=== PATIENT | male | born 1955 | race Caucasian/White ===

== ENCOUNTER 2019-03-10 02:46 | Inpatient (IN) | payer MEDICARE ==
[~2019-03-10] VITALS: Ht 167.6 cm; Wt 51.5 kg
[2019-03-10] MEDS: fentaNYL PF VIAL 100 MCG/2 ML VIAL IV PRN ×2 (03:41→05:08)
[2019-03-10 03:44] LABS: BASO % 1 % (0-3); EOS % 0 % (0-3); HEMATOCRIT 36.6 % (39.0-53.0); HEMOGLOBIN 12.8 g/dL (13.0-17.5); LYMPH # 1.1 x10^3/uL (1.0-4.8); LYMPH % 18 % (24-48); MEAN CORPUSCULAR HEMOGLOBIN 37 pg (25-35); MEAN CORPUSCULAR HGB CONC 35 g/dL (31-37); MEAN CORPUSCULAR VOLUME 105 fL (79-100); MONO # 0.3 x10^3/uL (0.0-1.1); MONO % 6 % (0-9); NEUT # 4.4 x10^3/uL (1.8-7.7); NEUT % 75 % (31-73); PLATELET COUNT 129 x10^3/uL (140-400); RED BLOOD COUNT 3.48 x10^6/uL (4.30-5.70); RED CELL DISTRIBUTION WIDTH 14.1 % (11.5-14.5); WHITE BLOOD COUNT 5.9 x10^3/uL (4.0-11.0)
[2019-03-10 03:52] LABS: CALCIUM 8.9 mg/dL (8.5-10.1); CREATININE 0.6 mg/dL (0.7-1.3); GFR 136.5; POTASSIUM 3.8 mmol/L (3.5-5.1)
[2019-03-10 03:58] LABS: ALBUMIN/GLOBULIN RATIO 1.1 (1.0-1.7); TOTAL BILIRUBIN 0.5 mg/dL (0.2-1.0); TOTAL PROTEIN 7.7 g/dL (6.4-8.2)
[2019-03-10] MEDS ORDERED: IV NORMAL SALINE 1000ML BAG 1,000 ML IV SCH (04:00)
[2019-03-10] MEDS ORDERED: ONDANSETRON PF 4 MG/2 ML VIAL. IV ONE (04:00)
--- NOTE | 2019-03-10 04:02 | PHYS DOC ---
Past Medical History Past Medical History: Other Additional Past Medical Histor: HERNIA Past Surgical History: Other Additional Past Surgical Histo: LEFT ANKLE SX Alcohol Use: Heavy Drug Use: None Adult General Chief Complaint Chief Complaint: GROIN PAIN HPI HPI Patient is a 63 year old male who presents with complaint of severe right groin pain. The patient states his symptoms started earlier this morning and have been constant since onset. States that he has had history of a right inguinal hernia. Has had occasional swelling of this hernia off and on over the past year but states that typically after laying flat the hernia will usually reduce back. He states that today the hernia did not reduce back and has had worsening swelling and pain to this area. Has had associated vomiting. Denies fever or loose stools. States that the hernia is very tender to touch at this time and he is unable to reduce it, thus he came to the emergency department for further treatment. Review of Systems Review of Systems Constitutional: Denies fever or chills [] Eyes: Denies change in visual acuity, redness, or eye pain [] HENT: Denies nasal congestion or sore throat [] Respiratory: Denies cough or shortness of breath [] Cardiovascular: Denies chest pain or edema[] GI: Nausea, vomiting, abdominal pain, denies bloody stools or diarrhea [] : Right-sided groin pain and swelling[] Musculoskeletal: Denies back pain or joint pain [] Integument: Denies rash or skin lesions [] Neurologic: Denies headache, focal weakness or sensory changes [] All other systems were reviewed and found to be within normal limits, except as documented in this note. Current Medications Current Medications Current Medications Medications (Trade) Dose Ordered Sig/Terry Start Time Stop Time Status Last Admin Dose Admin Fentanyl Citrate (Fentanyl 2ml Vial) 50 mcg PRN Q15MIN PRN 03/10/19 03:30 03/11/19 03:29 03/10/19 05:08 50 MCG Info (CONTRAST GIVEN -- Rx MONITORING) 1 each PRN DAILY PRN 03/10/19 04:30 03/12/19 04:29 Iohexol (Omnipaque 300 Mg/ml) 100 ml STK-MED ONCE 03/10/19 04:26 03/10/19 04:26 DC Ondansetron HCl (Zofran) 4 mg 1X ONCE 03/10/19 04:00 03/10/19 04:01 DC 03/10/19 03:44 4 MG Sodium Chloride 1,000 ml @ 1,000 mls/hr Q1H 03/10/19 04:00 03/10/19 04:59 DC 03/10/19 03:40 1,000 MLS/HR Allergies Allergies Allergies Coded Allergies Type Severity Reaction Last Updated Verified No Known Drug Allergies 03/10/19 No Physical Exam Physical Exam Constitutional: Alert, afebrile, appears in moderate discomfort. [] HENT: Normocephalic, atraumatic, bilateral external ears normal, oropharynx moist, no oral exudates, nose normal. [] Eyes: PERRLA, EOMI, conjunctiva normal, no discharge. [] Neck: Normal range of motion, no tenderness, supple, no stridor. [] Cardiovascular:Heart rate regular rhythm, no murmur [] Lungs & Thorax: Bilateral breath sounds clear to auscultation [] Abdomen: Bowel sounds normal, soft, no tenderness, no masses, no pulsatile masses. : Moderate to severe swollen tender mass to the right inguinal canal extending to right hemiscrotum, mass is irreducible through the right inguinal canal[] Skin: Warm, dry, no erythema, no rash. [] Back: No tenderness, no CVA tenderness. [] Extremities: No tenderness, no cyanosis, no clubbing, ROM intact, no edema. [] Neurologic: Alert and oriented X 3, normal motor function, normal sensory function, no focal deficits noted. [] Current Patient Data Vital Signs Vital Signs Date Time Temp Pulse Resp B/P (MAP) Pulse Ox O2 Delivery O2 Flow Rate FiO2 03/10/19 05:08 20 95 Room Air 03/10/19 04:02 64 174/99 (124) 03/10/19 02:48 98.2 98.2 Lab Values Laboratory Tests Test 03/10/19 03:10 03/10/19 05:03 White Blood Count 5.9 x10^3/uL (4.0-11.0) Red Blood Count 3.48 x10^6/uL (4.30-5.70) L Hemoglobin 12.8 g/dL (13.0-17.5) L Hematocrit 36.6 % (39.0-53.0) L Mean Corpuscular Volume 105 fL (79-100) H Mean Corpuscular Hemoglobin 37 pg (25-35) H Mean Corpuscular Hemoglobin Concent 35 g/dL (31-37) Red Cell Distribution Width 14.1 % (11.5-14.5) Platelet Count 129 x10^3/uL (140-400) L Neutrophils (%) (Auto) 75 % (31-73) H Lymphocytes (%) (Auto) 18 % (24-48) L Monocytes (%) (Auto) 6 % (0-9) Eosinophils (%) (Auto) 0 % (0-3) Basophils (%) (Auto) 1 % (0-3) Neutrophils # (Auto) 4.4 x10^3/uL (1.8-7.7) Lymphocytes # (Auto) 1.1 x10^3/uL (1.0-4.8) Monocytes # (Auto) 0.3 x10^3/uL (0.0-1.1) Eosinophils # (Auto) 0.0 x10^3/uL (0.0-0.7) Basophils # (Auto) 0.0 x10^3/uL (0.0-0.2) Sodium Level 129 mmol/L (136-145) L Potassium Level 3.8 mmol/L (3.5-5.1) Chloride Level 92 mmol/L (98-107) L Carbon Dioxide Level 23 mmol/L (21-32) Anion Gap 14 (6-14) Blood Urea Nitrogen 4 mg/dL (8-26) L Creatinine 0.6 mg/dL (0.7-1.3) L Estimated GFR (Cockcroft-Gault) 136.5 BUN/Creatinine Ratio 7 (6-20) Glucose Level 103 mg/dL (70-99) H Lactic Acid Level 2.3 mmol/L (0.4-2.0) H Calcium Level 8.9 mg/dL (8.5-10.1) Total Bilirubin 0.5 mg/dL (0.2-1.0) Aspartate Amino Transferase (AST) 45 U/L (15-37) H Alanine Aminotransferase (ALT) 41 U/L (16-63) Alkaline Phosphatase 58 U/L (46-116) Total Protein 7.7 g/dL (6.4-8.2) Albumin 4.0 g/dL (3.4-5.0) Albumin/Globulin Ratio 1.1 (1.0-1.7) Urine Collection Type Unknown Urine Color Yellow Urine Clarity Clear Urine pH 7.0 Urine Specific [place] 1.020 Urine Protein Negative mg/dL (NEG-TRACE) Urine Glucose (UA) Negative mg/dL (NEG) Urine Ketones (Stick) 15 mg/dL (NEG) Urine Blood Negative (NEG) Urine Nitrite Negative (NEG) Urine Bilirubin Negative (NEG) Urine Urobilinogen Dipstick 0.2 mg/dL (0.2 mg/dL) Urine Leukocyte Esterase Negative (NEG) Urine RBC 0 /HPF (0-2) Urine WBC 0 /HPF (0-4) Urine Squamous Epithelial Cells Few /LPF Urine Bacteria 0 /HPF (0-FEW) Laboratory Tests 03/10/19 03:10 Laboratory Tests 03/10/19 03:10 EKG EKG Not performed[] Radiology/Procedures Radiology/Procedures [facility] [address] [place], [place] [id number] IMAGING REPORT Signed PATIENT: ROC MCKEON ACCOUNT: [id number] : 1955 LOCATION: ER AGE: 63 SEX: M EXAM STATUS: REG ER ORD. PHYSICIAN: CALVIN CASPER MD REASON: right inguinal hernia, vomiting, eval for possible strangulated hernia PROCEDURE: CT ABD PELV W/ IV CONTRST ONLY CT abdomen and pelvis with contrast: Reason for examination: Right inguinal hernia with vomiting. Evaluate for possible strangulated hernia. Helical images were obtained through the abdomen and pelvis with intravenous administration of 75 cc Omnipaque 300. Reconstruction was performed in sagittal and coronal planes. Exposure: One or more of the following individualized dose reduction techniques were utilized for this examination: 1. Automated exposure control 2. Adjustment of the mA and/or kV according to patient size 3. Use of iterative reconstruction technique. The lung moncada are clear. Heart size is normal with no pericardial effusion. There is a small hiatal hernia. No focal abnormality seen at the liver, spleen, adrenal glands, gallbladder or pancreas. The abdominal aorta and inferior vena cava show no acute abnormalities but there is arteriosclerotic vascular calcification. The kidneys show no renal masses, renal calculi, hydronephrosis or evidence of obstructive uropathy. The stomach is distended with fluid. No abnormality seen at the duodenum. The small intestinal tract shows some mild dilatation down to the right inguinal hernia which appears to extend down into the scrotum with hydrocele surrounding the herniated small bowel.The opening of the right inguinal hernia is approximately 4 cm diameter. The small intestine extending into the hernia shows some compression as it enters and exits the hernia with some mild dilatation of the loop of small bowel within the hernia. The colon is not distended and there is no evidence of diverticulosis or diverticulitis. The bladder is distended and shows no wall thickening. Prostate gland contains calcification. Seminal vesicles are unremarkable. No free fluid is seen in the abdomen or pelvis. IMPRESSION: Right inguinal hernia with a loop of bowel extending into the right hemiscrotum and there is a hydrocele present. The opening of the hernia is approximately 4 cm diameter and does compress the small intestine entering and exiting the hernia and there is mild dilatation of the loop of bowel within the hernia. Fluid-filled stomach and mild dilatation of the small bowel proximal to the hernia consistent with some bowel obstruction related to the hernia. Small hiatal hernia. Electronically signed by: Alejandro Chaves MD (03/10/2019 5:14 AM) [facility] DICTATED and SIGNED BY: ALEJANDRO CHAVES MD DATE: 03/10/19 0514 [] Course & Med Decision Making Course & Med Decision Making Pertinent Labs and Imaging studies reviewed. (See chart for details) Patient started on IV fluids and given IV fentanyl and Zofran for initial treatment. The patient's lactic acid level was found to be 2.3. Given exam and findings, I'm concerned patient may have a strangulated right inguinal hernia. CT imaging confirms presence of small bowel in the right inguinal canal and scrotum with proximal changes concerning for possible small bowel obstruction. I contacted Dr. Durán of general surgery who has agreed to come see patient in hospital. Patient admitted to Dr. Mitchell. Siobhan Disclaimer Siobhan Disclaimer This electronic medical record was generated, in whole or in part, using a voice recognition dictation system. Departure Departure Impression: Primary Impression: Strangulated inguinal hernia Disposition: ADMITTED INPATIENT Admitting Physician: Leanne Mitchell Condition: GUARDED Referrals: LEANNE MITCHELL MD (PCP) CALVIN CASPER MD Mar 10, 2019 04:02
[2019-03-10] MEDS ORDERED: IOHEXOL 300 MG/ML 100ML VIAL. ONE (04:26)
[2019-03-10] MEDS ORDERED: CONTRAST GIVEN. MC PRN (04:30)
[2019-03-10] MEDS ORDERED: IOHEXOL 300 MG/ML 100ML VIAL. IV ONE (05:00)
--- NOTE | 2019-03-10 05:17 | RAD ---
CT abdomen and pelvis with contrast: Reason for examination: Right inguinal hernia with vomiting. Evaluate for possible strangulated hernia. Helical images were obtained through the abdomen and pelvis with intravenous administration of 75 cc Omnipaque 300. Reconstruction was performed in sagittal and coronal planes. Exposure: One or more of the following individualized dose reduction techniques were utilized for this examination: 1. Automated exposure control 2. Adjustment of the mA and/or kV according to patient size 3. Use of iterative reconstruction technique. The lung moncada are clear. Heart size is normal with no pericardial effusion. There is a small hiatal hernia. No focal abnormality seen at the liver, spleen, adrenal glands, gallbladder or pancreas. The abdominal aorta and inferior vena cava show no acute abnormalities but there is arteriosclerotic vascular calcification. The kidneys show no renal masses, renal calculi, hydronephrosis or evidence of obstructive uropathy. The stomach is distended with fluid. No abnormality seen at the duodenum. The small intestinal tract shows some mild dilatation down to the right inguinal hernia which appears to extend down into the scrotum with hydrocele surrounding the herniated small bowel.The opening of the right inguinal hernia is approximately 4 cm diameter. The small intestine extending into the hernia shows some compression as it enters and exits the hernia with some mild dilatation of the loop of small bowel within the hernia. The colon is not distended and there is no evidence of diverticulosis or diverticulitis. The bladder is distended and shows no wall thickening. Prostate gland contains calcification. Seminal vesicles are unremarkable. No free fluid is seen in the abdomen or pelvis. IMPRESSION: Right inguinal hernia with a loop of bowel extending into the right hemiscrotum and there is a hydrocele present. The opening of the hernia is approximately 4 cm diameter and does compress the small intestine entering and exiting the hernia and there is mild dilatation of the loop of bowel within the hernia. Fluid-filled stomach and mild dilatation of the small bowel proximal to the hernia consistent with some bowel obstruction related to the hernia. Small hiatal hernia. Electronically signed by: Janey Roblero MD (03/10/2019 5:14 AM) [facility]
[2019-03-10 05:23] LABS: BILIRUBIN,URINE NEGATIVE (NEG); CLARITY,URINE CLEAR; COLOR,URINE YELLOW; NITRITE,URINE NEGATIVE (NEG); PROTEIN,URINE NEGATIVE (NEG-TRACE); UROBILINOGEN,URINE 0.2 mg/dL (0.2 mg/dL)
[2019-03-10 05:34] LABS: BACTERIA,URINE 0 /HPF (0-FEW); RBC,URINE 0 /HPF (0-2); SQUAMOUS EPITHELIAL CELL,UR FEW /LPF; WBC,URINE 0 /HPF (0-4)
[2019-03-10 05:40] VITALS: BP 156/84
[2019-03-10] MEDS: IV NORMAL SALINE 1000ML BAG 1,000 ML IV SCH ×4 (06:00→22:00)
[2019-03-10] MEDS ORDERED: fentaNYL PF VIAL 100 MCG/2 ML VIAL IV PRN ×3 (06:00→08:45)
[2019-03-10] MEDS ORDERED: ONDANSETRON PF 4 MG/2 ML VIAL. IV PRN ×3 (06:00→13:00)
[2019-03-10] MEDS ORDERED: fentaNYL PF VIAL 100 MCG/2 ML VIAL ONE ×2 (06:24→06:39)
--- NOTE | 2019-03-10 06:33 | NUR ---
pt received fro ED at 0545 , PACU called and taking pt for surgery, left the unit at 0605.
[2019-03-10] MEDS ORDERED: PROPOFOL 20 ML IV ONE (06:35)
[2019-03-10] MEDS ORDERED: ONDANSETRON PF 4 MG/2 ML VIAL. ONE ×2 (06:35→07:18)
[2019-03-10] MEDS ORDERED: LIDOCAINE 2% PF 5 ML VIAL. ONE (06:35)
[2019-03-10] MEDS ORDERED: DEXAMETHASONE SOD PHOS 4 MG/ML VIAL ONE ×3 (06:35→07:18)
[2019-03-10] MEDS ORDERED: ROCURONIUM 50 MG/5 ML VIAL. ONE (06:37)
[2019-03-10] MEDS ORDERED: SUCCINYLCHOLINE 200 MG/10 ML VIAL. ONE (06:38)
[2019-03-10] MEDS ORDERED: BUPIVACAINE-EPI 0.5%-1:200000 MPF 30 ML VIAL. INJ ONE ×2 (07:00→07:52)
--- NOTE | 2019-03-10 07:05 | PDOC2 ---
CONSULT Date of Consult Date of Consult DATE: 03/10/19 TIME: 07:00 Reason for Consult Reason for Consult: Incarcerated right inguinal hernia Referring Physician Referring Physician: Dr. Sarabia Identification/Chief Complaint Chief Complaint right groin pain and bulge Source Source: Chart review, Patient History of Present Illness Reason for Visit: 63 yo M with hx of right groin bulge for one year. Pt notes previously been able to reduce hernia if went horizontal. However, yesterday, hernia protruded and did not reduce. He also reports N/V with no stool output. He presents to ER for evaluation. Past Medical History Cardiovascular: No pertinent hx Past Surgical History Past Surgical History: Other (ankle repair) Family History Family History: No Significant Social History 2 packs per day ALCOHOL: social Drugs: None Current Problem List Problem List Problems Medical Problems: (1) Strangulated inguinal hernia Status: Acute Current Medications Current Medications Current Medications Fentanyl Citrate (Fentanyl 2ml Vial) 50 mcg PRN Q15MIN PRN IV PAIN GREATER THAN 3/10 Last administered on 03/10/19at 05:08; Start 03/10/19 at 03:30; Stop 03/11/19 at 03:29 Sodium Chloride 1,000 ml @ 1,000 mls/hr Q1H IV Last administered on 03/10/19at 03:40; Start 03/10/19 at 04:00; Stop 03/10/19 at 04:59; Status DC Ondansetron HCl (Zofran) 4 mg 1X ONCE IV Last administered on 03/10/19at 03:44; Start 03/10/19 at 04:00; Stop 03/10/19 at 04:01; Status DC Iohexol (Omnipaque 300 Mg/ml) 75 ml 1X ONCE IV Last administered on 03/10/19at 04:41; Start 03/10/19 at 05:00; Stop 03/10/19 at 05:01; Status DC Info (CONTRAST GIVEN -- Rx MONITORING) 1 each PRN DAILY PRN MC SEE COMMENTS; Start 03/10/19 at 04:30; Stop 03/12/19 at 04:29 Iohexol (Omnipaque 300 Mg/ml) 100 ml STK-MED ONCE .ROUTE ; Start 03/10/19 at 04:26; Stop 03/10/19 at 04:26; Status DC Ondansetron HCl (Zofran) 4 mg PRN Q8HRS PRN IV NAUSEA/VOMITING 1ST CHOICE; Start 03/10/19 at 06:00; Stop 03/11/19 at 05:59 Fentanyl Citrate (Fentanyl 2ml Vial) 50 mcg PRN Q1HR PRN IV SEVERE PAIN 7-10; Start 03/10/19 at 06:00; Stop 03/11/19 at 05:59 Sodium Chloride 1,000 ml @ 125 mls/hr Q8H IV ; Start 03/10/19 at 06:00; Stop 03/11/19 at 05:59 Fentanyl Citrate (Fentanyl 2ml Vial) 100 mcg STK-MED ONCE .ROUTE ; Start 03/10/19 at 06:24; Stop 03/10/19 at 06:24; Status DC Bupivacaine HCl/ Epinephrine Bitart (Sensorcain-Epi 0.5%-1:066609 Mpf) 30 ml 1X ONCE INJ ; Start 03/10/19 at 07:00; Stop 03/10/19 at 07:01 Propofol 20 ml @ As Directed STK-MED ONCE IV ; Start 03/10/19 at 06:35; Stop 03/10/19 at 06:35; Status DC Lidocaine HCl (Lidocaine Pf 2% Vial) 5 ml STK-MED ONCE .ROUTE ; Start 03/10/19 at 06:35; Stop 03/10/19 at 06:35; Status DC Dexamethasone Sodium Phosphate (Decadron) 4 mg STK-MED ONCE .ROUTE ; Start 03/10/19 at 06:35; Stop 03/10/19 at 06:35; Status DC Ondansetron HCl (Zofran) 4 mg STK-MED ONCE .ROUTE ; Start 03/10/19 at 06:35; Stop 03/10/19 at 06:35; Status DC Rocuronium [place] (Zemuron) 50 mg STK-MED ONCE .ROUTE ; Start 03/10/19 at 06:37; Stop 03/10/19 at 06:37; Status DC Succinylcholine Chloride (Anectine) 200 mg STK-MED ONCE .ROUTE ; Start 03/10/19 at 06:38; Stop 03/10/19 at 06:39; Status DC Fentanyl Citrate (Fentanyl 2ml Vial) 100 mcg STK-MED ONCE .ROUTE ; Start at 06:39; Stop 03/10/19 at 06:39; Status DC Cefazolin Sodium/ Dextrose 50 ml @ 100 mls/hr 1X PREOP PRN IV PRIOR TO PROCED URE; Start 03/11/19 at 06:00; Stop 03/11/19 at 18:00 Allergies Allergies: Coded Allergies: No Known Drug Allergies (Unverified , 03/10/19) ROS Gastrointestinal: Yes Nausea, Yes Vomiting, Yes Abdominal Pain Physical Exam General: Alert, Oriented X3, Cooperative, moderate distress, Other (thin) HEENT: Atraumatic Lungs: Normal air movement Abdomen: Soft, Other (Right groin bulge, TTP, non reducible) Extremities: No clubbing, No cyanosis Skin: No rashes, No breakdown Neuro: Normal speech, Sensation intact Psych/Mental Status: Mental status NL, Mood NL Vitals VITALS Vital Signs Date Time Temp Pulse Resp B/P (MAP) Pulse Ox O2 Delivery O2 Flow Rate FiO2 03/10/19 05:40 97.5 58 20 156/84 (108) 97 Room Air 97.5 Labs Labs Laboratory Tests Test 03/10/19 03:10 03/10/19 05:03 White Blood Count 5.9 x10^3/uL (4.0-11.0) Red Blood Count 3.48 x10^6/uL (4.30-5.70) Hemoglobin 12.8 g/dL (13.0-17.5) Hematocrit 36.6 % (39.0-53.0) Mean Corpuscular Volume 105 fL (79-100) Mean Corpuscular Hemoglobin 37 pg (25-35) Mean Corpuscular Hemoglobin Concent 35 g/dL (31-37) Red Cell Distribution Width 14.1 % (11.5-14.5) Platelet Count 129 x10^3/uL (140-400) Neutrophils (%) (Auto) 75 % (31-73) Lymphocytes (%) (Auto) 18 % (24-48) Monocytes (%) (Auto) 6 % (0-9) Eosinophils (%) (Auto) 0 % (0-3) Basophils (%) (Auto) 1 % (0-3) Neutrophils # (Auto) 4.4 x10^3/uL (1.8-7.7) Lymphocytes # (Auto) 1.1 x10^3/uL (1.0-4.8) Monocytes # (Auto) 0.3 x10^3/uL (0.0-1.1) Eosinophils # (Auto) 0.0 x10^3/uL (0.0-0.7) Basophils # (Auto) 0.0 x10^3/uL (0.0-0.2) Sodium Level 129 mmol/L (136-145) Potassium Level 3.8 mmol/L (3.5-5.1) Chloride Level 92 mmol/L (98-107) Carbon Dioxide Level 23 mmol/L (21-32) Anion Gap 14 (6-14) Blood Urea Nitrogen 4 mg/dL (8-26) Creatinine 0.6 mg/dL (0.7-1.3) Estimated GFR (Cockcroft-Gault) 136.5 BUN/Creatinine Ratio 7 (6-20) Glucose Level 103 mg/dL (70-99) Lactic Acid Level 2.3 mmol/L (0.4-2.0) Calcium Level 8.9 mg/dL (8.5-10.1) Total Bilirubin 0.5 mg/dL (0.2-1.0) Aspartate Amino Transf (AST/SGOT) 45 U/L (15-37) Alanine Aminotransferase (ALT/SGPT) 41 U/L (16-63) Alkaline Phosphatase 58 U/L (46-116) Total Protein 7.7 g/dL (6.4-8.2) Albumin 4.0 g/dL (3.4-5.0) Albumin/Globulin Ratio 1.1 (1.0-1.7) Urine Collection Type Unknown Urine Color Yellow Urine Clarity Clear Urine pH 7.0 Urine Specific [place] 1.020 Urine Protein Negative mg/dL (NEG-TRACE) Urine Glucose (UA) Negative mg/dL (NEG) Urine Ketones (Stick) 15 mg/dL (NEG) Urine Blood Negative (NEG) Urine Nitrite Negative (NEG) Urine Bilirubin Negative (NEG) Urine Urobilinogen Dipstick 0.2 mg/dL (0.2 mg/dL) Urine Leukocyte Esterase Negative (NEG) Urine RBC 0 /HPF (0-2) Urine WBC 0 /HPF (0-4) Urine Squamous Epithelial Cells Few /LPF Urine Bacteria 0 /HPF (0-FEW) Laboratory Tests Test 03/10/19 03:10 03/10/19 05:03 White Blood Count 5.9 x10^3/uL (4.0-11.0) Red Blood Count 3.48 x10^6/uL (4.30-5.70) Hemoglobin 12.8 g/dL (13.0-17.5) Hematocrit 36.6 % (39.0-53.0) Mean Corpuscular Volume 105 fL (79-100) Mean Corpuscular Hemoglobin 37 pg (25-35) Mean Corpuscular Hemoglobin Concent 35 g/dL (31-37) Red Cell Distribution Width 14.1 % (11.5-14.5) Platelet Count 129 x10^3/uL (140-400) Neutrophils (%) (Auto) 75 % (31-73) Lymphocytes (%) (Auto) 18 % (24-48) Monocytes (%) (Auto) 6 % (0-9) Eosinophils (%) (Auto) 0 % (0-3) Basophils (%) (Auto) 1 % (0-3) Neutrophils # (Auto) 4.4 x10^3/uL (1.8-7.7) Lymphocytes # (Auto) 1.1 x10^3/uL (1.0-4.8) Monocytes # (Auto) 0.3 x10^3/uL (0.0-1.1) Eosinophils # (Auto) 0.0 x10^3/uL (0.0-0.7) Basophils # (Auto) 0.0 x10^3/uL (0.0-0.2) Sodium Level 129 mmol/L (136-145) Potassium Level 3.8 mmol/L (3.5-5.1) Chloride Level 92 mmol/L (98-107) Carbon Dioxide Level 23 mmol/L (21-32) Anion Gap 14 (6-14) Blood Urea Nitrogen 4 mg/dL (8-26) Creatinine 0.6 mg/dL (0.7-1.3) Estimated GFR (Cockcroft-Gault) 136.5 BUN/Creatinine Ratio 7 (6-20) Glucose Level 103 mg/dL (70-99) Lactic Acid Level 2.3 mmol/L (0.4-2.0) Calcium Level 8.9 mg/dL (8.5-10.1) Total Bilirubin 0.5 mg/dL (0.2-1.0) Aspartate Amino Transf (AST/SGOT) 45 U/L (15-37) Alanine Aminotransferase (ALT/SGPT) 41 U/L (16-63) Alkaline Phosphatase 58 U/L (46-116) Total Protein 7.7 g/dL (6.4-8.2) Albumin 4.0 g/dL (3.4-5.0) Albumin/Globulin Ratio 1.1 (1.0-1.7) Urine Collection Type Unknown Urine Color Yellow Urine Clarity Clear Urine pH 7.0 Urine Specific [place] 1.020 Urine Protein Negative mg/dL (NEG-TRACE) Urine Glucose (UA) Negative mg/dL (NEG) Urine Ketones (Stick) 15 mg/dL (NEG) Urine Blood Negative (NEG) Urine Nitrite Negative (NEG) Urine Bilirubin Negative (NEG) Urine Urobilinogen Dipstick 0.2 mg/dL (0.2 mg/dL) Urine Leukocyte Esterase Negative (NEG) Urine RBC 0 /HPF (0-2) Urine WBC 0 /HPF (0-4) Urine Squamous Epithelial Cells Few /LPF Urine Bacteria 0 /HPF (0-FEW) Images Images CT with RIH with small bowel with resultant obstruction Assessment/Plan Assessment/Plan Incarcerated right inguinal hernia TO OR for reduction and repair. R/R/B/A d/w pt. Risks, including, but not limited to: bleeding, infection, damage to surrounding structures, risk of anesthesia, risk of recurrence, risk of . He appears to understand, his questions are answered and he elects to proceed. Thanks for consult! LAW NOBLE MD Mar 10, 2019 07:05
[2019-03-10] MEDS ORDERED: fentaNYL PF VIAL 100 MCG/2 ML VIAL IVP ONE (07:15)
[2019-03-10] MEDS ORDERED: GLYCOPYRROLATE 1 MG/5 ML VIAL. ONE (07:18)
[2019-03-10] MEDS ORDERED: NEOSTIGMINE METHYLSULFATE 5 MG/5 ML SYRINGE. ONE (07:18)
[2019-03-10] MEDS ORDERED: IV RINGERS,LACTATED 1000ML 1,000 ML IV SCH (08:39)
[2019-03-10] MEDS ORDERED: PROCHLORPERAZINE 10 MG/2 ML VIAL. IV PRN (08:45)
[2019-03-10] MEDS ORDERED: MORPHINE SULFATE 2 MG/ML VIAL. IV PRN (08:45)
[2019-03-10] MEDS ORDERED: LIDOCAINE 1% PF 2 ML VIAL. ID PRN (08:45)
[2019-03-10] MEDS ORDERED: HYDROmorphone 2 MG/ML VIAL IV PRN (08:45)
[2019-03-10 11:00] VITALS: BP 149/89
--- NOTE | 2019-03-10 12:54 | NUR ---
SS following for discharge planning. SS reviewed pt chart. Pt is from home and is currently on room air. SS will continue to follow for discharge planning.
--- NOTE | 2019-03-10 12:56 | PDOC4 ---
OPERATIVE NOTE Date: Date: Mar 10, 2019 Pre-Op Diagnosis: Incarcerated right inguinal hernia Post-Op Diagnosis: same Procedure Performed: right inguinal hernia repair with mesh Surgeon: Kenny Noble Anesthesia Type: GETA plus local Blood Loss: 5 Specimans Obtained: hernia sac, cord lipoma Findings: incarcerated right inguinal hernia, viable small bowel Complications: none Operative Note: After obtaining informed consent, patient was taken to OR, induced under GETA and prepped in the usual fashion. Transverse incision was made right groin. External oblique identified and opened along it's fibers. Hernia was dissected off cord, cord surrounding by gilson drain. Hernia sac opened sharply with large amount of serous ascites. Contained small bowel was completely viable and reduced into peritoneal cavity. High ligation performed of hernia sac with 0 vicryl and sac and associated cord lipoma resected with cautery and sent to pathology for evaluation. Extra large mesh plug of phasix mesh was then placed in defect and secured with 0 vicryl. Onlay mesh placed around cord and secured with 0 vicryl. External oblique closed with 0 vicryl. Skin repaired with 3 0 vicryl and 4 0 monocryl. Dressing placed. Patient tolerated procedure well and sent to PACU in stable condition. All counts correct. LAW NOBLE MD Mar 10, 2019 12:56
[2019-03-10] MEDS ORDERED: HYDROcodone/APAP 5/325MG 1 TAB TABLET PO PRN (13:00)
[2019-03-10] MEDS ORDERED: NALOXONE 0.4 MG/ML VIAL. IV PRN (13:00)
[2019-03-10] MEDS ORDERED: 0.9 % SODIUM CHLORIDE 10 ML DISP.SYRIN. IV PRN (13:00)
[2019-03-10] MEDS: ENOXAPARIN 40 MG/0.4 ML SYRINGE. SQ SCH (14:22)
[2019-03-10] MEDS: IV RINGERS,LACTATED 1000ML 1,000 ML IV SCH ×2 (14:23→22:47)
[2019-03-10 15:00] VITALS: BP 126/93
[2019-03-10 19:48] VITALS: BP 121/78
--- NOTE | 2019-03-10 20:46 | HP ---
ADMIT DATE: 03/10/2019 CHIEF COMPLAINT AND HISTORY OF PRESENT ILLNESS: This 63-year-old white male is well known to me from followup in the office. The patient has had a hernia in the right groin for some time. It has never given him problems; however, the day prior to admission it protruded and did not reduce, became painful. He presented to the Emergency Room where he was found to have an incarcerated painful right inguinal hernia and admitted with surgical consultation. PAST MEDICAL HISTORY: Remarkable for prior ankle surgery. MEDICATIONS: None on a regular basis. ALLERGIES: He has no known drug allergies. FAMILY HISTORY: Noncontributory. REVIEW OF SYSTEMS: Remarkable for the groin pain. He denies any significant nausea or vomiting with this. CT scan showed possibly some early small-bowel obstruction in the Emergency Room. PHYSICAL EXAMINATION: GENERAL: He is a well-developed, well-nourished white male, in moderate distress. VITAL SIGNS: Stable. He is afebrile. HEAD, EYES, EARS, NOSE AND THROAT: Unremarkable. NECK: Supple, without thyromegaly. CHEST: Clear to auscultation and percussion. HEART: Regular rate and rhythm without S3, S4 or murmur. ABDOMEN: Soft, nontender, without hepatosplenomegaly or masses. EXTREMITIES: Without cyanosis, clubbing or edema. NEUROLOGIC: He is intact. GENITOURINARY: He does have [id number] swollen, tender mass, right inguinal canal extending down into the right scrotum, which was nonreducible in the Emergency Room. IMPRESSION: Painful incarcerated inguinal hernia. PLAN: The patient will be admitted. Surgery has been consulted. The patient will be monitored, managed and treated appropriately. LEANNE TOBAR MD DR: JONN/kalin JOB#: [id number] / [id number]
[2019-03-10] MEDS: DOCUSATE SODIUM 100 MG CAPSULE. PO SCH (21:00)
[2019-03-10 23:24] VITALS: BP 108/70
[2019-03-11 03:38] VITALS: BP 109/70
[2019-03-11 05:06] LABS: BASO % 0 % (0-3); EOS % 0 % (0-3); HEMATOCRIT 34.4 % (39.0-53.0); HEMOGLOBIN 11.8 g/dL (13.0-17.5); LYMPH # 1.1 x10^3/uL (1.0-4.8); LYMPH % 18 % (24-48); MEAN CORPUSCULAR HEMOGLOBIN 36 pg (25-35); MEAN CORPUSCULAR HGB CONC 34 g/dL (31-37); MEAN CORPUSCULAR VOLUME 106 fL (79-100); MONO # 0.6 x10^3/uL (0.0-1.1); MONO % 9 % (0-9); NEUT # 4.6 x10^3/uL (1.8-7.7); NEUT % 72 % (31-73); PLATELET COUNT 98 x10^3/uL (140-400); RED BLOOD COUNT 3.25 x10^6/uL (4.30-5.70); RED CELL DISTRIBUTION WIDTH 14.2 % (11.5-14.5); WHITE BLOOD COUNT 6.4 x10^3/uL (4.0-11.0)
[2019-03-11 05:14] LABS: CALCIUM 8.4 mg/dL (8.5-10.1); CREATININE 0.7 mg/dL (0.7-1.3); GFR 114.3; POTASSIUM 3.5 mmol/L (3.5-5.1)
[2019-03-11 07:00] VITALS: BP 115/65
[2019-03-11] MEDS ORDERED: ceFAZolin 2GM PREMIX 2 GM/50 ML BAG IV ONE (07:00)
--- NOTE | 2019-03-11 08:26 | PDOC ---
GENERAL General: vss and afebrile. awake and alert and a little sore. chest clear, heart regular, abdomen benign, eating breakfast, hernia site bandaged. ok with dc today if ok with surgery. VITAL SIGNS/I&O Vital Signs/I&O: Vital Signs Date Time Temp Pulse Resp B/P (MAP) Pulse Ox O2 Delivery O2 Flow Rate FiO2 03/11/19 07:00 97.8 56 18 115/65 (82) 97 Room Air 97.8 03/10/19 10:53 10.0 I & O 03/10/19 03/10/19 03/11/19 14:59 22:59 06:59 Intake Total 1500 ml 150 ml 300 ml Output Total 5 ml Balance 1495 ml 150 ml 300 ml ALLERGIES Allergies: Allergies Coded Allergies Type Severity Reaction Last Updated Verified No Known Drug Allergies 03/10/19 No MEDS Medications: Current Medications Medications (Trade) Dose Ordered Sig/Terry Route PRN Reason Start Time Stop Time Status Last Admin Dose Admin Enoxaparin Sodium (Lovenox 40mg Syringe) 40 mg Q24H SQ 03/10/19 13:00 03/10/19 14:22 Ringer's Solution 1,000 ml @ 100 mls/hr Q10H IV 03/10/19 12:47 03/10/19 14:23 LAB Lab: Laboratory Tests Test 03/11/19 04:45 White Blood Count 6.4 x10^3/uL (4.0-11.0) Red Blood Count 3.25 x10^6/uL (4.30-5.70) L Hemoglobin 11.8 g/dL (13.0-17.5) L Hematocrit 34.4 % (39.0-53.0) L Mean Corpuscular Volume 106 fL (79-100) H Mean Corpuscular Hemoglobin 36 pg (25-35) H Mean Corpuscular Hemoglobin Concent 34 g/dL (31-37) Red Cell Distribution Width 14.2 % (11.5-14.5) Platelet Count 98 x10^3/uL (140-400) L Neutrophils (%) (Auto) 72 % (31-73) Lymphocytes (%) (Auto) 18 % (24-48) L Monocytes (%) (Auto) 9 % (0-9) Eosinophils (%) (Auto) 0 % (0-3) Basophils (%) (Auto) 0 % (0-3) Neutrophils # (Auto) 4.6 x10^3/uL (1.8-7.7) Lymphocytes # (Auto) 1.1 x10^3/uL (1.0-4.8) Monocytes # (Auto) 0.6 x10^3/uL (0.0-1.1) Eosinophils # (Auto) 0.0 x10^3/uL (0.0-0.7) Basophils # (Auto) 0.0 x10^3/uL (0.0-0.2) Sodium Level 136 mmol/L (136-145) Potassium Level 3.5 mmol/L (3.5-5.1) Chloride Level 101 mmol/L (98-107) Carbon Dioxide Level 26 mmol/L (21-32) Anion Gap 9 (6-14) Blood Urea Nitrogen 5 mg/dL (8-26) L Creatinine 0.7 mg/dL (0.7-1.3) Estimated GFR (Cockcroft-Gault) 114.3 Glucose Level 87 mg/dL (70-99) Calcium Level 8.4 mg/dL (8.5-10.1) L Laboratory Tests 03/11/19 04:45 Laboratory Tests 03/11/19 04:45 LEANNE TOBAR MD Mar 11, 2019 08:26
[2019-03-11] MEDS: IV RINGERS,LACTATED 1000ML 1,000 ML IV SCH (08:47)
[2019-03-11] MEDS: DOCUSATE SODIUM 100 MG CAPSULE. PO SCH (09:00)
[2019-03-11 11:00] VITALS: BP 111/64
[2019-03-11] MEDS: IV NORMAL SALINE 1000ML BAG 1,000 ML IV SCH (12:47)
--- NOTE | 2019-03-11 12:52 | PDOC ---
SURGICAL PROGRESS NOTE Subjective Pt with c/o mild soreness, but otherwise doing well, jorgito diet Vital Signs Vital Signs Date Time Temp Pulse Resp B/P (MAP) Pulse Ox O2 Delivery O2 Flow Rate FiO2 03/11/19 11:00 97.9 53 20 111/64 (80) 98 Room Air 97.9 03/10/19 10:53 10.0 I&O Intake and Output 03/11/19 07:00 Intake Total 1950 ml Output Total 5 ml Balance 1945 ml Intake Oral 450 ml IV Total 1500 ml Output Estimated Blood Loss 5 ml # Voids 5 General: Alert, Oriented X3, Cooperative, No acute distress Abdomen: Soft, No tenderness, Other (dressing c/d/i) Labs Laboratory Tests Test 03/10/19 03:10 03/10/19 05:03 03/10/19 07:40 03/11/19 04:45 White Blood Count 5.9 x10^3/uL (4.0-11.0) 6.4 x10^3/uL (4.0-11.0) Red Blood Count 3.48 x10^6/uL (4.30-5.70) 3.25 x10^6/uL (4.30-5.70) Hemoglobin 12.8 g/dL (13.0-17.5) 11.8 g/dL (13.0-17.5) Hematocrit 36.6 % (39.0-53.0) 34.4 % (39.0-53.0) Mean Corpuscular Volume 105 fL (79-100) 106 fL (79-100) Mean Corpuscular Hemoglobin 37 pg (25-35) 36 pg (25-35) Mean Corpuscular Hemoglobin Concent 35 g/dL (31-37) 34 g/dL (31-37) Red Cell Distribution Width 14.1 % (11.5-14.5) 14.2 % (11.5-14.5) Platelet Count 129 x10^3/uL (140-400) 98 x10^3/uL (140-400) Neutrophils (%) (Auto) 75 % (31-73) 72 % (31-73) Lymphocytes (%) (Auto) 18 % (24-48) 18 % (24-48) Monocytes (%) (Auto) 6 % (0-9) 9 % (0-9) Eosinophils (%) (Auto) 0 % (0-3) 0 % (0-3) Basophils (%) (Auto) 1 % (0-3) 0 % (0-3) Neutrophils # (Auto) 4.4 x10^3/uL (1.8-7.7) 4.6 x10^3/uL (1.8-7.7) Lymphocytes # (Auto) 1.1 x10^3/uL (1.0-4.8) 1.1 x10^3/uL (1.0-4.8) Monocytes # (Auto) 0.3 x10^3/uL (0.0-1.1) 0.6 x10^3/uL (0.0-1.1) Eosinophils # (Auto) 0.0 x10^3/uL (0.0-0.7) 0.0 x10^3/uL (0.0-0.7) Basophils # (Auto) 0.0 x10^3/uL (0.0-0.2) 0.0 x10^3/uL (0.0-0.2) Sodium Level 129 mmol/L (136-145) 136 mmol/L (136-145) Potassium Level 3.8 mmol/L (3.5-5.1) 3.5 mmol/L (3.5-5.1) Chloride Level 92 mmol/L (98-107) 101 mmol/L (98-107) Carbon Dioxide Level 23 mmol/L (21-32) 26 mmol/L (21-32) Anion Gap 14 (6-14) 9 (6-14) Blood Urea Nitrogen 4 mg/dL (8-26) 5 mg/dL (8-26) Creatinine 0.6 mg/dL (0.7-1.3) 0.7 mg/dL (0.7-1.3) Estimated GFR (Cockcroft-Gault) 136.5 114.3 BUN/Creatinine Ratio 7 (6-20) Glucose Level 103 mg/dL (70-99) 87 mg/dL (70-99) Lactic Acid Level 2.3 mmol/L (0.4-2.0) 0.6 mmol/L (0.4-2.0) Calcium Level 8.9 mg/dL (8.5-10.1) 8.4 mg/dL (8.5-10.1) Total Bilirubin 0.5 mg/dL (0.2-1.0) Aspartate Amino Transf (AST/SGOT) 45 U/L (15-37) Alanine Aminotransferase (ALT/SGPT) 41 U/L (16-63) Alkaline Phosphatase 58 U/L (46-116) Total Protein 7.7 g/dL (6.4-8.2) Albumin 4.0 g/dL (3.4-5.0) Albumin/Globulin Ratio 1.1 (1.0-1.7) Urine Collection Type Unknown Urine Color Yellow Urine Clarity Clear Urine pH 7.0 Urine Specific [place] 1.020 Urine Protein Negative mg/dL (NEG-TRACE) Urine Glucose (UA) Negative mg/dL (NEG) Urine Ketones (Stick) 15 mg/dL (NEG) Urine Blood Negative (NEG) Urine Nitrite Negative (NEG) Urine Bilirubin Negative (NEG) Urine Urobilinogen Dipstick 0.2 mg/dL (0.2 mg/dL) Urine Leukocyte Esterase Negative (NEG) Urine RBC 0 /HPF (0-2) Urine WBC 0 /HPF (0-4) Urine Squamous Epithelial Cells Few /LPF Urine Bacteria 0 /HPF (0-FEW) Laboratory Tests Test 03/11/19 04:45 White Blood Count 6.4 x10^3/uL (4.0-11.0) Red Blood Count 3.25 x10^6/uL (4.30-5.70) Hemoglobin 11.8 g/dL (13.0-17.5) Hematocrit 34.4 % (39.0-53.0) Mean Corpuscular Volume 106 fL (79-100) Mean Corpuscular Hemoglobin 36 pg (25-35) Mean Corpuscular Hemoglobin Concent 34 g/dL (31-37) Red Cell Distribution Width 14.2 % (11.5-14.5) Platelet Count 98 x10^3/uL (140-400) Neutrophils (%) (Auto) 72 % (31-73) Lymphocytes (%) (Auto) 18 % (24-48) Monocytes (%) (Auto) 9 % (0-9) Eosinophils (%) (Auto) 0 % (0-3) Basophils (%) (Auto) 0 % (0-3) Neutrophils # (Auto) 4.6 x10^3/uL (1.8-7.7) Lymphocytes # (Auto) 1.1 x10^3/uL (1.0-4.8) Monocytes # (Auto) 0.6 x10^3/uL (0.0-1.1) Eosinophils # (Auto) 0.0 x10^3/uL (0.0-0.7) Basophils # (Auto) 0.0 x10^3/uL (0.0-0.2) Sodium Level 136 mmol/L (136-145) Potassium Level 3.5 mmol/L (3.5-5.1) Chloride Level 101 mmol/L (98-107) Carbon Dioxide Level 26 mmol/L (21-32) Anion Gap 9 (6-14) Blood Urea Nitrogen 5 mg/dL (8-26) Creatinine 0.7 mg/dL (0.7-1.3) Estimated GFR (Cockcroft-Gault) 114.3 Glucose Level 87 mg/dL (70-99) Calcium Level 8.4 mg/dL (8.5-10.1) Problem List Problems Medical Problems: (1) Strangulated inguinal hernia Status: Acute Assessment/Plan s/p RIH repair OK to d/c home f/u with Luis Armando in two weeks. LAW NOBLE MD Mar 11, 2019 12:52
[2019-03-11] MEDS: ENOXAPARIN 40 MG/0.4 ML SYRINGE. SQ SCH (13:00)
--- NOTE | 2019-03-11 15:15 | NUR ---
Discharge Note: [facility] Discharge instructions and discharge home medications reviewed with Patient and a copy given. All questions have been answered and understanding verbalized. The following instructions and handouts were given: Discharge Instructions, Patient Education, Follow Up Instructions Discontinued lines and drains: PIV removed, Catheter intact. Patient discharged to Home with Self-Care via Private Vehicle
--- NOTE | 2019-03-11 22:06 | PATHOLOGY ---
[facility] Accession Number: [id number] . 01 Material submitted: . PART A: soft tissue - CORD LIPOMA PART B: hernia - HERNIA SAC . 01 Clinical history: . Right inguinal hernia . 02 Diagnosis: A. "Cord lipoma", excision: - Mature adipose tissue consistent with lipoma. . B. "Hernia sac", hernia repair: - Vascularized fibroadipose connective tissue with mesothelial lining consistent with hernia sac. (CLW/db; 03/11/2019) [facility] 03/11/2019 1540 Local . 02 Electronically signed: . Dania Vela MD, Pathologist NPI- [id number] . 01 Gross description: . A. The specimen is received in formalin, labeled "Diandra, Peng, cord lipoma", are two irregular fragment of yellow lobulated adipose tissue covered by a thin okeefe-white membrane measuring 3.4 x 2.8 x 1.0 cm in aggregate. Serially sectioned shows a no-yellow homogeneous cut surface with no discrete hemorrhage or necrosis. Representatively submitted in A1. . B. The specimen is received in formalin, labeled "Horosko, Peng, hernia sac", consist of a disrupted okeefe-pink fibromembranous sac measuring 8.7 x 5.4 x 0.2 cm. No discrete nodules or necrosis identified. Representatively submitted in B1. ([facility]; 03/10/2019) [facility] 03/10/2019 2114 Local . 02 Pathologist provided ICD-10: D17.9, K44.9 . 02 CPT . 205961, 124322 Specimen Comment: A courtesy copy of this report has been sent to Specimen Comment: [phone], . Specimen Comment: Report sent to / DR TOBAR Performed at: 01 [facility] [address], [place], [place] [id number] MD Lorne Rosas MD Phone: [phone] Performed at: 02 [facility] [address], [place] [id number] MD Pepe Mike MD Phone: [phone]
== END 2019-03-11 15:19 | disposition home or self-care (01) | DRG 351 ==
LOC: ER 02:46 → 4 NORTH 05:25
PROVIDERS: ADMIT Family Medicine; ATTEND Family Medicine
PROC: 0YU50JZ Supplement Right Inguinal Region with Synthetic Substitute, Open Approach (ICD-10-PCS; principal; 2019-03-10 06:30)
DX: K40.30 Unilateral inguinal hernia, with obstruction, without gangrene, not specified as recurrent (principal); R18.8 Other ascites; N43.3 Hydrocele, unspecified; K44.9 Diaphragmatic hernia without obstruction or gangrene; F17.210 Nicotine dependence, cigarettes, uncomplicated
CPT/HCPCS: 36415; 74177; 80048; 80053; 81001; 83605; 85025; 88302; 88304; 96361; 96374; 96375; 96376; A7015; C1781; J0330; J0696; J1100; J1650; J2001; J2405; J2704; J2710; J3010; J3490; J7030; J7120; Q9967; 97110; 99285-25; G0378